=== PATIENT | male | born 1960 | race Two or more races ===

== ENCOUNTER 2023-01-21 12:54 | Emergency (ER) | payer OTHER ==
[~2023-01-21] VITALS: Ht 177.8 cm; Wt 113.4 kg
[2023-01-21] MEDS ORDERED: PROGRAF1 MG PO (13:51)
[2023-01-21] MEDS ORDERED: PROGRAF0.5 MG PO (13:51)
[2023-01-21] MEDS ORDERED: CARVEDILOL25 MG (13:52)
[2023-01-21] MEDS ORDERED: PEPCID AC20 MG (13:53)
[2023-01-21] MEDS ORDERED: CRESTOR5 MG PO (13:53)
[2023-01-21] MEDS ORDERED: GLIMEPIRIDE2 M1 PO (13:53)
[2023-01-21] MEDS ORDERED: RESTORIL30 M1 PO (13:54)
[2023-01-21] MEDS ORDERED: DILTIAZEM 24HR360 M1 (13:54)
[2023-01-21] MEDS ORDERED: CARDURA XL4 MG PO (13:54)
[2023-01-21] MEDS ORDERED: CARDURA8 MG PO (13:54)
[2023-01-21] MEDS ORDERED: ZESTRIL30 MG (13:55)
[2023-01-21] MEDS ORDERED: MYFORTIC360 MG PO (13:55)
[2023-01-21 15:51] LABS: ALBUMIN 4.1 gm/dL (3.4-5.0); BILIRUBIN TOTAL 0.66 mg/dL (0.3-1.2); CALCIUM 9.7 mg/dL (8.5-10.1); CREATININE SERUM 2.02 mg/dL (0.70-1.30); GFR 33.53; POTASSIUM 5.77 mEq/L (3.5-5.1); TOTAL PROTEIN 8.4 gm/dL (6.4-8.2)
[2023-01-21 15:58] LABS: BILIRUBIN,CONJUGATED 0.14 mg/dL (0.0-0.2); BILIRUBIN,UNCONJUGATED 0.52 mg/dL (0.0-0.6)
[2023-01-21 16:28] LABS: HEMATOCRIT 36.4 % (39.0-48.0); HEMOGLOBIN 12.4 g/dL (13-16.00); MEAN CORPUSCULAR HEMOGLOBIN 32.3 pg (27.00-32.0); PLATELET COUNT 169 K/uL (150-450); RED BLOOD COUNT 3.83 M/uL (4.00-6.00); RED CELL DISTRIBUTION WIDTH 14.3 % (11.5-14.5)
== END 2023-01-21 18:05 | disposition home or self-care (01) ==
LOC: ER 12:54
PROVIDERS: General Practice
DX: K52.89 Other specified noninfective gastroenteritis and colitis (principal); R19.7 Diarrhea, unspecified; E86.0 Dehydration; E11.9 Type 2 diabetes mellitus without complications; I10 Essential (primary) hypertension

== ENCOUNTER 2024-03-04 09:18 | Inpatient (IN) | payer OTHER ==
[~2024-03-04] VITALS: Ht 177.8 cm; Wt 113.4 kg
[~2024-03-04 09:18] MED LIST: CARDURA XL4 MG PO; CARDURA8 MG PO; CARVEDILOL25 MG; CRESTOR5 MG PO; DILTIAZEM 24HR360 M1; GLIMEPIRIDE2 M1 PO; MYFORTIC360 MG PO; PEPCID AC20 MG; PROGRAF0.5 MG PO; PROGRAF1 MG PO; RESTORIL30 M1 PO; ZESTRIL30 MG
[2024-03-04] MEDS ORDERED: METHYLPREDNISOLONE SOD SUCC 40 MG VIAL IV ONE (10:00)
[2024-03-04] MEDS ORDERED: IPRATROPIUM/ALBUTEROL SULFATE 3 ML AMPUL.NEB IH ONE (10:00)
[2024-03-04] MEDS ORDERED: MAGNESIUM SULFATE IN WATER 2 GM/50 ML PIGGYBAG IV ONE (10:00)
[2024-03-04] MEDS ORDERED: CEFTRIAXONE SODIUM 1,000 MG VIAL IV ONE (10:00)
[2024-03-04] MEDS ORDERED: LEVALBUTEROL HCL 0.63 MG/3 ML SOLUTION IH SCH (10:00)
[2024-03-04] MEDS ORDERED: BENZONATATE 100 MG CAPSULE PO ONE (10:00)
[2024-03-04 10:26] LABS: HEMATOCRIT 26.6 % (39.0-48.0); MEAN CELL VOLUME 94.5 fL (80.0-100.00); MEAN CORPUSCULAR HGB CONC 34.5 g/dl (32.0-36.0); PLATELET COUNT 200 K/uL (150-450); RED BLOOD COUNT 2.81 M/uL (4.00-6.00); RED CELL DISTRIBUTION WIDTH 15.2 % (11.5-14.5)
[2024-03-04 10:48] LABS: MEAN CORPUSCULAR HEMOGLOBIN 32.7 pg (27.00-32.0)
[2024-03-04 10:49] LABS: HEMOGLOBIN 9.2 g/dL (13-16.00)
[2024-03-04 10:54] LABS: PH,URINE 5.5 (5.0-8.0); URINE APPEARANCE Clear; URINE BILIRRUBIN Negative (NEGATIVE); URINE BLOOD Negative; URINE COLOR Yellow; URINE GLUCOSE Negative (NEGATIVE); URINE KETONE Trace (NEGATIVE); URINE LEUKOCYTE Negative; URINE NITRATE Negative; URINE PROTEIN 30 (NEGATIVE); URINE UROBILINOGEN 0.2 E.U./dl
[2024-03-04 10:55] LABS: URINE BACTERIA 32.7 uL (0.0-1933); URINE CAST 3.05 uL (0.0-1.40); URINE EPITHELIAL CELLS 13.1 uL (0.0-38.8); URINE WBC 14.9 uL (0.0-23.2)
[2024-03-04 11:45] LABS: ALBUMIN 3.3 gm/dL (3.4-5.0); BILIRUBIN TOTAL 0.38 mg/dL (0.3-1.2); CALCIUM 9.2 mg/dL (8.5-10.1); CREATININE SERUM 1.65 mg/dL (0.70-1.30); GFR 42.21; GLOBULINA 3.2 G/DL (2.4-3.5); POTASSIUM 4.88 mEq/L (3.5-5.1); TOTAL PROTEIN 6.5 gm/dL (6.4-8.2)
[2024-03-04 15:05] LABS: ABG PH 7.425 (7.35-7.45); ABG PO2 76.3 mmHg (80-100); ABG pCO2 27.9 mmHg (35-45)
[2024-03-04 15:06] LABS: BASE EXCESS -4.9 mmol/l; BICARBONATE 17.9 mmol/l (23-25); SaO2 95.2 %; Tco2 18.7 mmol/l
[2024-03-04 15:07] LABS: allen test SATISFACTORY; o2 21 %; puncture site RADIAL LEFT
[2024-03-04] MEDS ORDERED: FUROsemide 20 MG/2 ML VIAL IV SCH (21:41)
[2024-03-04] MEDS ORDERED: CARVEDILOL 25 MG TABLET PO SCH (21:43)
[2024-03-04] MEDS ORDERED: 0.9 % SODIUM CHLORIDE 1,000 ML IV SCH (21:45)
[2024-03-04] MEDS ORDERED: DEXTROSE 50 % IN WATER 0.5 G/ML DISP.SYRIN IV PRN (22:00)
[2024-03-04] MEDS ORDERED: INSULIN LISPRO 1,000 UNIT/10 ML UNITS SUBCUTANEO PRN (22:00)
[2024-03-04] MEDS ORDERED: ASPIRIN 81 MG TABLET.EC PO SCH (22:19)
[2024-03-04] MEDS ORDERED: DOXAZOSIN MESYLATE 4 MG TABLET PO SCH (22:20)
[2024-03-05 01:11] LABS: ALBUMIN 3.3 gm/dL (3.4-5.0); CALCIUM 9.6 mg/dL (8.5-10.1); CREATININE SERUM 1.76 mg/dL (0.70-1.30); GFR 39.18; PHOSPHOROUS 2.1 mg/dL (2.5-4.9); POTASSIUM 4.94 mEq/L (3.5-5.1)
[2024-03-05 01:20] LABS: CHOL HDL RATIO 2.1 (0-5.0); MAGNESIUM 1.9 mg/dL (1.8-2.4)
[2024-03-05 03:55] VITALS: BP 150/70; O2SAT 96
[2024-03-05 07:51] LABS: HEMATOCRIT 27.3 % (39.0-48.0); HEMOGLOBIN 9.4 g/dL (13-16.00); MEAN CELL VOLUME 94.6 fL (80.0-100.00); MEAN CORPUSCULAR HEMOGLOBIN 32.6 pg (27.00-32.0); MEAN CORPUSCULAR HGB CONC 34.4 g/dl (32.0-36.0); PLATELET COUNT 224 K/uL (150-450); RED BLOOD COUNT 2.89 M/uL (4.00-6.00); RED CELL DISTRIBUTION WIDTH 15.3 % (11.5-14.5)
[2024-03-05 08:30] VITALS: BP 181/82; O2SAT 99
[2024-03-05] MEDS ORDERED: GUAIFENESIN 200 MG/10 ML BLIST.PACK PO SCH (09:36)
[2024-03-05] MEDS ORDERED: IPRATROPIUM BROMIDE 0.5 MG/2.5 ML AMPUL.NEB IH SCH ×2 (09:37→20:00)
[2024-03-05 16:00] VITALS: BP 150/80; O2SAT 99
[2024-03-05] MEDS ORDERED: ALBUTEROL SULFATE 3 ML/2.5 MG AMPUL.NEB IH SCH (17:19)
[2024-03-05] MEDS ORDERED: FUROsemide 20 MG/2 ML VIAL IV SCH (21:00)
[2024-03-06 01:06] VITALS: BP 160/85; O2SAT 98
[2024-03-06 08:00] VITALS: BP 136/623; O2SAT 97
[2024-03-06 10:12] LABS: HEMATOCRIT 26.6 % (39.0-48.0); HEMOGLOBIN 9.1 g/dL (13-16.00); MEAN CELL VOLUME 94.7 fL (80.0-100.00); MEAN CORPUSCULAR HEMOGLOBIN 32.5 pg (27.00-32.0); MEAN CORPUSCULAR HGB CONC 34.3 g/dl (32.0-36.0); PLATELET COUNT 232 K/uL (150-450); RED BLOOD COUNT 2.81 M/uL (4.00-6.00); RED CELL DISTRIBUTION WIDTH 14.9 % (11.5-14.5)
[2024-03-06 11:00] LABS: CREATININE SERUM 1.59 mg/dL (0.70-1.30); GFR 44.05; PHOSPHOROUS 2.9 mg/dL (2.5-4.9); POTASSIUM 4.82 mEq/L (3.5-5.1)
[2024-03-06 17:00] VITALS: BP 164/69; O2SAT 100
[2024-03-07 00:58] VITALS: BP 105/67; O2SAT 98
[2024-03-07 08:59] VITALS: BP 124/63; O2SAT 99
[2024-03-07] MEDS ORDERED: FUROsemide 20 MG/2 ML VIAL IV SCH (09:00)
== END 2024-03-07 14:56 | disposition home or self-care (01) | DRG 190 ==
LOC: ER 09:20 → SEC-K 22:48 → SURH 22:48
PROVIDERS: General Practice; Internal Medicine; ADMIT Internal Medicine; ATTEND Internal Medicine
PROC: BB24ZZZ Computerized Tomography (CT Scan) of Bilateral Lungs (ICD-10-PCS; 2024-03-04)
PROC: 4A12X4Z Monitoring of Cardiac Electrical Activity, External Approach (ICD-10-PCS; 2024-03-05)
PROC: 3E0F7GC Introduction of Other Therapeutic Substance into Respiratory Tract, Via Natural or Artificial Opening (ICD-10-PCS; 2024-03-05)
PROC: B246ZZZ Ultrasonography of Right and Left Heart (ICD-10-PCS; principal; 2024-03-06)
DX: J44.1 Chronic obstructive pulmonary disease with (acute) exacerbation (principal); I50.33 Acute on chronic diastolic (congestive) heart failure; I13.0 Hypertensive heart and chronic kidney disease with heart failure and stage 1 through stage 4 chronic kidney disease, or unspecified chronic kidney disease; N17.8 Other acute kidney failure; D84.89 Other immunodeficiencies; Z94.0 Kidney transplant status; J91.8 Pleural effusion in other conditions classified elsewhere; E11.22 Type 2 diabetes mellitus with diabetic chronic kidney disease; D63.1 Anemia in chronic kidney disease; N18.9 Chronic kidney disease, unspecified; E11.9 Type 2 diabetes mellitus without complications; G47.33 Obstructive sleep apnea (adult) (pediatric); Z87.891 Personal history of nicotine dependence; Z79.84 Long term (current) use of oral hypoglycemic drugs; Z99.81 Dependence on supplemental oxygen